=== PATIENT | female | born 1950 | race African-American/Black ===

== ENCOUNTER 2020-02-04 10:45 | Outpatient (CLI) | payer MEDICARE, BC ==
--- NOTE | 2020-02-04 14:18 | RAD ---
RIGHT HAND: 02/04/20 Three views. HISTORY: Unspecified fracture wrist and hand. Carpals appear normally aligned. Mild degenerative change in the intercarpal joints most prominent at the scaphotrapezium and first carpometacarpal joint. Metacarpals appear intact. Phalanges appear intact. Mild degenerative changes seen in the IP joints. IMPRESSION: No acute fracture identified. POS: [facility]
== END 2020-02-04 10:46 | disposition home or self-care (01) ==
LOC: BICRAD 10:45
PROVIDERS: ATTEND Specialist
DX: S62.91XA Unspecified fracture of right hand, initial encounter for closed fracture (principal)